=== PATIENT | male | born 1945 | race Caucasian/White ===

== ENCOUNTER → 2017-10-20 | Outpatient (CLI) | payer MEDICARE ==
[~2017-10-20] MED LIST: ACET500; ALBU2.5V5 INH; ALLO100; AMIT50; Amitriptyline100 MG PO; BUPR150ER; BUPR150ER PO; BUSP15; BUSP15 PO; CARI350; CEPACOL SORE T1 EACH MM; CHOL10002 PO; CLON.2 PO; CLOT10 SS; CODBUTASA; CYAN500 PO; DOC250 PO; ESZO3 PO; FENTANYL1 EAC1 TOP; FEXO180; GAVILAX17 GM PO; HYDMOR4; HYDMOR4 PO; K-Dur20 MEQ PO; LOSA50 PO; MIRT15ST PO; MONT10T PO; NAPR500; NAPR500 PO; Omeprazole20 M1 PO; POTA20PAC; SOMA350 MG PO; SPIR25 PO; TAMS.4ER; TEMA30; TOPI100; TOPI25 PO; TRIHYD253A; VANCOMYCIN1.5 GM/252 IV; VERA240ER; Verapamil ER200 MG PO
== END ==
LOC: LAB 15:51 → LAB SHORT 15:51
DX: N39.0 Urinary tract infection, site not specified (principal)
CPT/HCPCS: 87077; 87086; 87186

== ENCOUNTER 2018-02-03 20:50 | Inpatient (IN) | payer MEDICARE ==
[~2018-02-03] VITALS: Ht 188 cm; Wt 104.9 kg
[~2018-02-03 20:50] MED LIST changes: -ACET500; -ALBU2.5V5 INH; -Amitriptyline100 MG PO; -BUPR150ER PO; -BUSP15 PO; -CEPACOL SORE T1 EACH MM; -CLON.2 PO; -CLOT10 SS; -CYAN500 PO; -DOC250 PO; -ESZO3 PO; -FENTANYL1 EAC1 TOP; -GAVILAX17 GM PO; -K-Dur20 MEQ PO; -LOSA50 PO; -MIRT15ST PO; -MONT10T PO; -NAPR500 PO; -Omeprazole20 M1 PO; -SOMA350 MG PO; -SPIR25 PO; -TOPI25 PO; -VANCOMYCIN1.5 GM/252 IV; -Verapamil ER200 MG PO
[2018-02-03] MEDS ORDERED: Amitriptyline100 MG PO (21:07)
[2018-02-03] MEDS ORDERED: ACET500 (21:07)
[2018-02-03] MEDS ORDERED: CLON.2 PO (21:08)
[2018-02-03] MEDS ORDERED: BUSP15 PO (21:08)
[2018-02-03 21:12] LABS: BASOPHILS ABSOLUTE AUTO 0.01 K/mm3 (0.00-0.23); BASOPHILS PERCENT AUTO 0 % (0-2); Hematocrit 38.8 % (37.0-53.0); Hemoglobin 13.3 g/dL (13.5-17.5); LYMPHOCYTES ABSOLUTE AUTO 0.65 K/mm3 (0.84-5.20); LYMPHOCYTES PERCENT AUTO 7 % (21-46); MONOCYTES ABSOLUTE AUTO 0.83 K/mm3 (0.16-1.47); MONOCYTES PERCENT AUTO 10 % (4-13); Mean Corpuscular HGB 31.2 pg (26.0-34.0); Mean Corpuscular HGB Conc 34.3 g/dL (31.5-36.5); Mean Corpuscular Volume 91 fL (80-100); Mean Platelet Volume 9.5 fL (9.1-12.4); Platelet Count 182 K/mm3 (150-400); RDW Coefficient Variation 12.4 % (11.7-14.2); RDW Standard Deviation 41.1 fL (35.1-46.3); Red Blood Cell Count 4.26 M/mm3 (4.30-5.90); White Blood Cell Count 8.75 K/mm3 (4.00-11.30)
[2018-02-03 21:13] LABS: EOSINOPHILS PERCENT AUTO 0 % (0-6); IMMATURE GRAN ABSOLUTE AUTO 0.02 K/mm3 (0.00-0.10); IMMATURE GRAN PERCENT AUTO 0 % (0-1); NEUTROPHILS ABSOLUTE AUTO 7.24 K/mm3 (1.96-9.15); NEUTROPHILS PERCENT AUTO 83 % (41-73)
[2018-02-03 21:25] LABS: Albumin, Blood 3.5 g/dL (3.4-5.0); Bilirubin, Total 0.9 mg/dL (0.1-1.0); Bun/Creatinine Ratio 12.5 (12.0-20.0); Calcium, Blood 8.9 mg/dL (8.5-10.1); Creatinine, Blood 1.44 mg/dL (0.60-1.20); Globulin, Blood 3.5 g/dL (2.2-4.0); Potassium, Blood 3.9 mmol/L (3.5-5.5)
[2018-02-03] MEDS ORDERED: DOC250 PO (21:27)
[2018-02-03] MEDS ORDERED: HYDMOR4 PO (21:28)
[2018-02-03] MEDS ORDERED: K-Dur20 MEQ PO (21:29)
[2018-02-04] MEDS ORDERED: LOSA50 PO (00:25)
[2018-02-04] MEDS ORDERED: ESZO3 PO (00:25)
[2018-02-04] MEDS ORDERED: NAPR500 PO (00:26)
[2018-02-04] MEDS ORDERED: MONT10T PO (00:26)
[2018-02-04] MEDS ORDERED: Omeprazole20 M1 PO (00:27)
[2018-02-04] MEDS ORDERED: SOMA350 MG PO (00:29)
[2018-02-04] MEDS ORDERED: SPIR25 PO (00:30)
[2018-02-04] MEDS ORDERED: TOPI25 PO (00:32)
[2018-02-04] MEDS ORDERED: Verapamil ER200 MG PO (00:33)
[2018-02-04] MEDS ORDERED: CYAN500 PO (00:34)
[2018-02-04] MEDS ORDERED: CHOL10002 PO (00:35)
[2018-02-04] MEDS ORDERED: BUPR150ER PO (00:37)
[2018-02-04 03:45] LABS: Bun/Creatinine Ratio 15.7 (12.0-20.0); Calcium, Blood 8.3 mg/dL (8.5-10.1); Creatinine, Blood 1.4 mg/dL (0.60-1.20); Potassium, Blood 4.1 mmol/L (3.5-5.5)
[2018-02-05 05:45] LABS: Hematocrit 32.5 % (37.0-53.0); Hemoglobin 10.7 g/dL (13.5-17.5); Mean Corpuscular HGB 30.7 pg (26.0-34.0); Mean Corpuscular HGB Conc 32.9 g/dL (31.5-36.5); Mean Corpuscular Volume 93 fL (80-100); Mean Platelet Volume 9.9 fL (9.1-12.4); Platelet Count 142 K/mm3 (150-400); RDW Coefficient Variation 12.9 % (11.7-14.2); RDW Standard Deviation 44.5 fL (35.1-46.3); Red Blood Cell Count 3.49 M/mm3 (4.30-5.90); White Blood Cell Count 11.19 K/mm3 (4.00-11.30)
[2018-02-05 06:07] LABS: Alanine Aminotransfer (ALT/SGP 14 U/L (12-78); Albumin, Blood 2.5 g/dL (3.4-5.0); Albumin/Globulin Ratio 0.7 (0.8-1.8); Alk Phos 42 U/L (50-136); Anion Gap 8 mmol/L (6-16); Aspartate Aminotrans (AST/SGOT 10 U/L (12-37); Bilirubin, Total 0.6 mg/dL (0.1-1.0); Blood Urea Nitrogen 23 mg/dL (8-24); Bun/Creatinine Ratio 18.4 (12.0-20.0); CO2, Blood 22 mmol/L (21-32); Calcium, Blood 8.4 mg/dL (8.5-10.1); Chloride, Blood 109 mmol/L (98-108); Creatinine, Blood 1.25 mg/dL (0.60-1.20); Globulin, Blood 3.4 g/dL (2.2-4.0); Glomerular Filtration Rate >60 (60-); Glucose, Blood 102 mg/dL (70-99); Magnesium, Blood 1.6 mg/dL (1.6-2.4); Potassium, Blood 3.6 mmol/L (3.5-5.5); Sodium, Blood 139 mmol/L (136-145); Total Protein, Blood 5.9 g/dL (6.4-8.2)
[2018-02-05 06:09] LABS: BAND PERCENT MAN 32 % (0-8); BASOPHILS PERCENT MAN 0 % (0-2); EOSINOPHILS PERCENT MAN 0 % (0-6); LYMPHOCYTES ABSOLUTE MAN 0.44 K/mm3 (0.84-5.20); LYMPHOCYTES PERCENT MAN 4 % (21-46); MONOCYTES ABSOLUTE MAN 0.44 K/mm3 (0.16-1.47); MONOCYTES PERCENT MAN 4 % (4-13); NEUTROPHILS ABSOLUTE MAN 10.29 K/mm3 (1.96-9.15); SEG NEUTROPHILS PERCENT MAN 60 % (41-73); TOTAL CELLS COUNTED 100
[2018-02-06 04:04] LABS: Hematocrit 32.3 % (37.0-53.0); Hemoglobin 10.6 g/dL (13.5-17.5); Mean Corpuscular HGB 30.9 pg (26.0-34.0); Mean Corpuscular HGB Conc 32.8 g/dL (31.5-36.5); Mean Corpuscular Volume 94 fL (80-100); Mean Platelet Volume 9.6 fL (9.1-12.4); Platelet Count 154 K/mm3 (150-400); RDW Coefficient Variation 12.8 % (11.7-14.2); RDW Standard Deviation 44.3 fL (35.1-46.3); Red Blood Cell Count 3.43 M/mm3 (4.30-5.90); White Blood Cell Count 14.04 K/mm3 (4.00-11.30)
[2018-02-06 04:23] LABS: BAND PERCENT MAN 6 % (0-8); BASOPHILS PERCENT MAN 0 % (0-2); EOSINOPHILS PERCENT MAN 0 % (0-6); LYMPHOCYTES ABSOLUTE MAN 0.28 K/mm3 (0.84-5.20); LYMPHOCYTES PERCENT MAN 2 % (21-46); MONOCYTES ABSOLUTE MAN 0.14 K/mm3 (0.16-1.47); MONOCYTES PERCENT MAN 1 % (4-13); NEUTROPHILS ABSOLUTE MAN 13.61 K/mm3 (1.96-9.15); SEG NEUTROPHILS PERCENT MAN 91 % (41-73); TOTAL CELLS COUNTED 100
[2018-02-06 04:27] LABS: Alanine Aminotransfer (ALT/SGP 18 U/L (12-78); Albumin, Blood 2.4 g/dL (3.4-5.0); Albumin/Globulin Ratio 0.6 (0.8-1.8); Alk Phos 51 U/L (50-136); Anion Gap 8 mmol/L (6-16); Aspartate Aminotrans (AST/SGOT 17 U/L (12-37); Bilirubin, Total 0.9 mg/dL (0.1-1.0); Blood Urea Nitrogen 20 mg/dL (8-24); Bun/Creatinine Ratio 17.2 (12.0-20.0); CO2, Blood 23 mmol/L (21-32); Calcium, Blood 8.5 mg/dL (8.5-10.1); Chloride, Blood 109 mmol/L (98-108); Creatinine, Blood 1.16 mg/dL (0.60-1.20); Globulin, Blood 3.9 g/dL (2.2-4.0); Glomerular Filtration Rate >60 (60-); Glucose, Blood 101 mg/dL (70-99); Potassium, Blood 3.2 mmol/L (3.5-5.5); Sodium, Blood 140 mmol/L (136-145); Total Protein, Blood 6.3 g/dL (6.4-8.2)
[2018-02-06 04:32] LABS: Vancomycin, Trough 12.9 ug/mL (5.0-10.0)
[2018-02-07 06:05] LABS: BASOPHILS ABSOLUTE AUTO 0.02 K/mm3 (0.00-0.23); BASOPHILS PERCENT AUTO 0 % (0-2); EOSINOPHILS ABSOLUTE AUTO 0.02 K/mm3 (0.00-0.68); EOSINOPHILS PERCENT AUTO 0 % (0-6); Hematocrit 30.8 % (37.0-53.0); Hemoglobin 10.3 g/dL (13.5-17.5); IMMATURE GRAN ABSOLUTE AUTO 0.64 K/mm3 (0.00-0.10); IMMATURE GRAN PERCENT AUTO 4 % (0-1); LYMPHOCYTES ABSOLUTE AUTO 0.43 K/mm3 (0.84-5.20); LYMPHOCYTES PERCENT AUTO 3 % (21-46); MONOCYTES ABSOLUTE AUTO 1.05 K/mm3 (0.16-1.47); MONOCYTES PERCENT AUTO 7 % (4-13); Mean Corpuscular HGB 31.5 pg (26.0-34.0); Mean Corpuscular HGB Conc 33.4 g/dL (31.5-36.5); Mean Corpuscular Volume 94 fL (80-100); Mean Platelet Volume 9.9 fL (9.1-12.4); NEUTROPHILS ABSOLUTE AUTO 13.72 K/mm3 (1.96-9.15); NEUTROPHILS PERCENT AUTO 87 % (41-73); Platelet Count 177 K/mm3 (150-400); RDW Coefficient Variation 12.9 % (11.7-14.2); RDW Standard Deviation 45.1 fL (35.1-46.3); Red Blood Cell Count 3.27 M/mm3 (4.30-5.90); White Blood Cell Count 15.88 K/mm3 (4.00-11.30)
[2018-02-07 06:33] LABS: Albumin, Blood 2.2 g/dL (3.4-5.0); Albumin/Globulin Ratio 0.5 (0.8-1.8); Bilirubin, Total 0.6 mg/dL (0.1-1.0); Bun/Creatinine Ratio 16.3 (12.0-20.0); Calcium, Blood 8.8 mg/dL (8.5-10.1); Creatinine, Blood 1.41 mg/dL (0.60-1.20); Globulin, Blood 4.2 g/dL (2.2-4.0); Total Protein, Blood 6.4 g/dL (6.4-8.2)
[2018-02-08 05:10] LABS: BASOPHILS ABSOLUTE AUTO 0.02 K/mm3 (0.00-0.23); BASOPHILS PERCENT AUTO 0 % (0-2); EOSINOPHILS ABSOLUTE AUTO 0.08 K/mm3 (0.00-0.68); EOSINOPHILS PERCENT AUTO 1 % (0-6); Hematocrit 30.6 % (37.0-53.0); IMMATURE GRAN ABSOLUTE AUTO 0.21 K/mm3 (0.00-0.10); IMMATURE GRAN PERCENT AUTO 2 % (0-1); LYMPHOCYTES ABSOLUTE AUTO 0.58 K/mm3 (0.84-5.20); LYMPHOCYTES PERCENT AUTO 4 % (21-46); MONOCYTES ABSOLUTE AUTO 1.09 K/mm3 (0.16-1.47); MONOCYTES PERCENT AUTO 8 % (4-13); Mean Corpuscular HGB 30.2 pg (26.0-34.0); Mean Corpuscular HGB Conc 32.7 g/dL (31.5-36.5); Mean Corpuscular Volume 92 fL (80-100); Mean Platelet Volume 10.2 fL (9.1-12.4); NEUTROPHILS ABSOLUTE AUTO 11.11 K/mm3 (1.96-9.15); NEUTROPHILS PERCENT AUTO 85 % (41-73); Platelet Count 228 K/mm3 (150-400); RDW Coefficient Variation 13.1 % (11.7-14.2); RDW Standard Deviation 44.3 fL (35.1-46.3); Red Blood Cell Count 3.31 M/mm3 (4.30-5.90); White Blood Cell Count 13.09 K/mm3 (4.00-11.30)
[2018-02-08 05:38] LABS: Alanine Aminotransfer (ALT/SGP 72 U/L (12-78); Albumin, Blood 2.1 g/dL (3.4-5.0); Albumin/Globulin Ratio 0.5 (0.8-1.8); Alk Phos 87 U/L (50-136); Anion Gap 11 mmol/L (6-16); Aspartate Aminotrans (AST/SGOT 127 U/L (12-37); Bilirubin, Total 0.6 mg/dL (0.1-1.0); Blood Urea Nitrogen 28 mg/dL (8-24); Bun/Creatinine Ratio 17.8 (12.0-20.0); CO2, Blood 21 mmol/L (21-32); Calcium, Blood 8.9 mg/dL (8.5-10.1); Chloride, Blood 109 mmol/L (98-108); Creatinine, Blood 1.57 mg/dL (0.60-1.20); Globulin, Blood 4.3 g/dL (2.2-4.0); Glomerular Filtration Rate 47 (60-); Glucose, Blood 99 mg/dL (70-99); Potassium, Blood 3.1 mmol/L (3.5-5.5); Sodium, Blood 141 mmol/L (136-145); Total Protein, Blood 6.4 g/dL (6.4-8.2)
[2018-02-08 05:44] LABS: Vancomycin, Trough 28.5 ug/mL (5.0-10.0)
[2018-02-09 05:11] LABS: BASOPHILS ABSOLUTE AUTO 0.02 K/mm3 (0.00-0.23); BASOPHILS PERCENT AUTO 0 % (0-2); EOSINOPHILS ABSOLUTE AUTO 0.05 K/mm3 (0.00-0.68); EOSINOPHILS PERCENT AUTO 0 % (0-6); Hematocrit 29.6 % (37.0-53.0); Hemoglobin 9.9 g/dL (13.5-17.5); IMMATURE GRAN ABSOLUTE AUTO 0.33 K/mm3 (0.00-0.10); IMMATURE GRAN PERCENT AUTO 2 % (0-1); LYMPHOCYTES ABSOLUTE AUTO 0.37 K/mm3 (0.84-5.20); LYMPHOCYTES PERCENT AUTO 3 % (21-46); MONOCYTES ABSOLUTE AUTO 0.88 K/mm3 (0.16-1.47); MONOCYTES PERCENT AUTO 6 % (4-13); Mean Corpuscular HGB 31.1 pg (26.0-34.0); Mean Corpuscular HGB Conc 33.4 g/dL (31.5-36.5); Mean Corpuscular Volume 93 fL (80-100); Mean Platelet Volume 9.8 fL (9.1-12.4); NEUTROPHILS ABSOLUTE AUTO 12.37 K/mm3 (1.96-9.15); NEUTROPHILS PERCENT AUTO 88 % (41-73); Platelet Count 257 K/mm3 (150-400); RDW Coefficient Variation 13.2 % (11.7-14.2); RDW Standard Deviation 45.3 fL (35.1-46.3); Red Blood Cell Count 3.18 M/mm3 (4.30-5.90); White Blood Cell Count 14.02 K/mm3 (4.00-11.30)
[2018-02-09 05:51] LABS: Alanine Aminotransfer (ALT/SGP 99 U/L (12-78); Albumin, Blood 1.8 g/dL (3.4-5.0); Albumin/Globulin Ratio 0.4 (0.8-1.8); Alk Phos 103 U/L (50-136); Anion Gap 9 mmol/L (6-16); Aspartate Aminotrans (AST/SGOT 167 U/L (12-37); Bilirubin, Total 0.6 mg/dL (0.1-1.0); Blood Urea Nitrogen 30 mg/dL (8-24); Bun/Creatinine Ratio 19.2 (12.0-20.0); CO2, Blood 20 mmol/L (21-32); Calcium, Blood 8.6 mg/dL (8.5-10.1); Chloride, Blood 112 mmol/L (98-108); Creatinine, Blood 1.56 mg/dL (0.60-1.20); Globulin, Blood 4.3 g/dL (2.2-4.0); Glomerular Filtration Rate 47 (60-); Glucose, Blood 93 mg/dL (70-99); Potassium, Blood 3.7 mmol/L (3.5-5.5); Sodium, Blood 141 mmol/L (136-145); Total Protein, Blood 6.1 g/dL (6.4-8.2); Vancomycin, Trough 17.1 ug/mL (5.0-10.0)
[2018-02-10 06:11] LABS: BASOPHILS ABSOLUTE AUTO 0.02 K/mm3 (0.00-0.23); BASOPHILS PERCENT AUTO 0 % (0-2); EOSINOPHILS ABSOLUTE AUTO 0.09 K/mm3 (0.00-0.68); EOSINOPHILS PERCENT AUTO 1 % (0-6); Hematocrit 28.4 % (37.0-53.0); Hemoglobin 9.5 g/dL (13.5-17.5); IMMATURE GRAN ABSOLUTE AUTO 0.33 K/mm3 (0.00-0.10); IMMATURE GRAN PERCENT AUTO 2 % (0-1); LYMPHOCYTES ABSOLUTE AUTO 0.57 K/mm3 (0.84-5.20); LYMPHOCYTES PERCENT AUTO 4 % (21-46); MONOCYTES ABSOLUTE AUTO 0.76 K/mm3 (0.16-1.47); MONOCYTES PERCENT AUTO 5 % (4-13); Mean Corpuscular HGB 30.9 pg (26.0-34.0); Mean Corpuscular HGB Conc 33.5 g/dL (31.5-36.5); Mean Corpuscular Volume 93 fL (80-100); Mean Platelet Volume 9.7 fL (9.1-12.4); NEUTROPHILS PERCENT AUTO 89 % (41-73); Platelet Count 329 K/mm3 (150-400); RDW Coefficient Variation 13.2 % (11.7-14.2); Red Blood Cell Count 3.07 M/mm3 (4.30-5.90); White Blood Cell Count 16.37 K/mm3 (4.00-11.30)
[2018-02-10 06:45] LABS: Magnesium, Blood 2.3 mg/dL (1.6-2.4)
[2018-02-10 06:46] LABS: Albumin, Blood 2.4 g/dL (3.4-5.0); Albumin/Globulin Ratio 0.6 (0.8-1.8); Bilirubin, Total 0.6 mg/dL (0.1-1.0); Bun/Creatinine Ratio 26.1 (12.0-20.0); Calcium, Blood 8.8 mg/dL (8.5-10.1); Creatinine, Blood 1.57 mg/dL (0.60-1.20); Globulin, Blood 3.9 g/dL (2.2-4.0); Phosphorus, Blood 2.7 mg/dL (2.5-4.9); Potassium, Blood 3.8 mmol/L (3.5-5.5); Total Protein, Blood 6.3 g/dL (6.4-8.2)
[2018-02-11 05:43] LABS: Anion Gap 10 mmol/L (6-16); Blood Urea Nitrogen 40 mg/dL (8-24); Bun/Creatinine Ratio 29.4 (12.0-20.0); CO2, Blood 20 mmol/L (21-32); Chloride, Blood 110 mmol/L (98-108); Creatinine, Blood 1.36 mg/dL (0.60-1.20); Glomerular Filtration Rate 55 (60-); Glucose, Blood 112 mg/dL (70-99); Potassium, Blood 3.9 mmol/L (3.5-5.5); Sodium, Blood 140 mmol/L (136-145)
[2018-02-11 05:44] LABS: Alanine Aminotransfer (ALT/SGP 120 U/L (12-78); Albumin/Globulin Ratio 0.5 (0.8-1.8); Alk Phos 103 U/L (50-136); Aspartate Aminotrans (AST/SGOT 195 U/L (12-37); Bilirubin, Total 0.7 mg/dL (0.1-1.0); Calcium, Blood 8.4 mg/dL (8.5-10.1); Globulin, Blood 3.9 g/dL (2.2-4.0); Total Protein, Blood 5.9 g/dL (6.4-8.2); Vancomycin, Trough 14.1 ug/mL (5.0-10.0)
[2018-02-11 06:26] LABS: BASOPHILS ABSOLUTE AUTO 0.03 K/mm3 (0.00-0.23); BASOPHILS PERCENT AUTO 0 % (0-2); EOSINOPHILS ABSOLUTE AUTO 0.07 K/mm3 (0.00-0.68); EOSINOPHILS PERCENT AUTO 0 % (0-6); Hematocrit 29.5 % (37.0-53.0); Hemoglobin 9.8 g/dL (13.5-17.5); IMMATURE GRAN ABSOLUTE AUTO 0.19 K/mm3 (0.00-0.10); IMMATURE GRAN PERCENT AUTO 1 % (0-1); LYMPHOCYTES PERCENT AUTO 4 % (21-46); MONOCYTES ABSOLUTE AUTO 0.58 K/mm3 (0.16-1.47); MONOCYTES PERCENT AUTO 4 % (4-13); Mean Corpuscular HGB 30.8 pg (26.0-34.0); Mean Corpuscular HGB Conc 33.2 g/dL (31.5-36.5); Mean Corpuscular Volume 93 fL (80-100); Mean Platelet Volume 9.7 fL (9.1-12.4); NEUTROPHILS ABSOLUTE AUTO 14.25 K/mm3 (1.96-9.15); NEUTROPHILS PERCENT AUTO 91 % (41-73); Platelet Count 365 K/mm3 (150-400); RDW Coefficient Variation 13.1 % (11.7-14.2); RDW Standard Deviation 44.3 fL (35.1-46.3); Red Blood Cell Count 3.18 M/mm3 (4.30-5.90); White Blood Cell Count 15.72 K/mm3 (4.00-11.30)
[2018-02-11 13:10] LABS: % CD 4 POS. LYMPH. 51.7 % (30.8-58.5); ABSOLUTE CD 4 HELPER 259 /uL (359-1519); BASOS 0 % (Not Estab.); EOS 1 % (Not Estab.); EOS (ABSOLUTE) 0.1 x10E3/uL (0.0-0.4); HEMATOCRIT 29.8 % (37.5-51.0); HEMOGLOBIN 9.6 g/dL (13.0-17.7); IMMATURE GRANS (ABS) 0.1 x10E3/uL (0.0-0.1); IMMATURE GRANULOCYTES 1 % (Not Estab.); LYMPHS 3 % (Not Estab.); LYMPHS (ABSOLUTE) 0.5 x10E3/uL (0.7-3.1); MCH 30.3 pg (26.6-33.0); MCHC 32.2 g/dL (31.5-35.7); MCV 94 fL (79-97); MONOCYTES 6 % (Not Estab.); MONOCYTES(ABSOLUTE) 0.9 x10E3/uL (0.1-0.9); NEUTROPHILS 89 % (Not Estab.); NEUTROPHILS (ABSOLUTE) 14.1 x10E3/uL (1.4-7.0); PLATELETS 362 x10E3/uL (150-379); RBC 3.17 x10E6/uL (4.14-5.80); RDW 14.3 % (12.3-15.4); WBC 15.8 x10E3/uL (3.4-10.8)
[2018-02-11 15:07] LABS: HBSAG SCREEN Negative (Negative); HEP B CORE AB, TOT Negative (Negative); HEP C VIRUS AB <0.1 (0.0-0.9)
[2018-02-12 05:45] LABS: BASOPHILS ABSOLUTE AUTO 0.03 K/mm3 (0.00-0.23); BASOPHILS PERCENT AUTO 0 % (0-2); EOSINOPHILS ABSOLUTE AUTO 0.17 K/mm3 (0.00-0.68); EOSINOPHILS PERCENT AUTO 1 % (0-6); Hemoglobin 9.5 g/dL (13.5-17.5); IMMATURE GRAN ABSOLUTE AUTO 0.22 K/mm3 (0.00-0.10); IMMATURE GRAN PERCENT AUTO 1 % (0-1); LYMPHOCYTES ABSOLUTE AUTO 0.45 K/mm3 (0.84-5.20); LYMPHOCYTES PERCENT AUTO 3 % (21-46); MONOCYTES ABSOLUTE AUTO 0.52 K/mm3 (0.16-1.47); MONOCYTES PERCENT AUTO 3 % (4-13); Mean Corpuscular HGB 30.5 pg (26.0-34.0); Mean Corpuscular HGB Conc 32.8 g/dL (31.5-36.5); Mean Corpuscular Volume 93 fL (80-100); NEUTROPHILS ABSOLUTE AUTO 14.46 K/mm3 (1.96-9.15); NEUTROPHILS PERCENT AUTO 91 % (41-73); Platelet Count 419 K/mm3 (150-400); RDW Coefficient Variation 13.2 % (11.7-14.2); RDW Standard Deviation 45.1 fL (35.1-46.3); Red Blood Cell Count 3.11 M/mm3 (4.30-5.90); White Blood Cell Count 15.85 K/mm3 (4.00-11.30)
[2018-02-12 06:02] LABS: Albumin/Globulin Ratio 0.5 (0.8-1.8); Bilirubin, Total 0.5 mg/dL (0.1-1.0); Bun/Creatinine Ratio 34.1 (12.0-20.0); Calcium, Blood 8.5 mg/dL (8.5-10.1); Creatinine, Blood 1.38 mg/dL (0.60-1.20); Potassium, Blood 3.8 mmol/L (3.5-5.5)
[2018-02-12 12:10] LABS: Antinuclear Antibody Screen Negative (Negative)
[2018-02-12 14:51] LABS: Rheumatoid Factor, Serum Negative (Negative)
[2018-02-13 05:29] LABS: BASOPHILS ABSOLUTE AUTO 0.04 K/mm3 (0.00-0.23); BASOPHILS PERCENT AUTO 0 % (0-2); EOSINOPHILS ABSOLUTE AUTO 0.21 K/mm3 (0.00-0.68); EOSINOPHILS PERCENT AUTO 1 % (0-6); Hematocrit 30.2 % (37.0-53.0); IMMATURE GRAN ABSOLUTE AUTO 0.22 K/mm3 (0.00-0.10); IMMATURE GRAN PERCENT AUTO 1 % (0-1); LYMPHOCYTES ABSOLUTE AUTO 0.49 K/mm3 (0.84-5.20); LYMPHOCYTES PERCENT AUTO 3 % (21-46); MONOCYTES ABSOLUTE AUTO 0.61 K/mm3 (0.16-1.47); MONOCYTES PERCENT AUTO 4 % (4-13); Mean Corpuscular HGB 30.8 pg (26.0-34.0); Mean Corpuscular HGB Conc 33.1 g/dL (31.5-36.5); Mean Corpuscular Volume 93 fL (80-100); Mean Platelet Volume 9.8 fL (9.1-12.4); NEUTROPHILS ABSOLUTE AUTO 13.74 K/mm3 (1.96-9.15); NEUTROPHILS PERCENT AUTO 90 % (41-73); Platelet Count 510 K/mm3 (150-400); RDW Coefficient Variation 13.2 % (11.7-14.2); RDW Standard Deviation 44.9 fL (35.1-46.3); Red Blood Cell Count 3.25 M/mm3 (4.30-5.90); White Blood Cell Count 15.31 K/mm3 (4.00-11.30)
[2018-02-13 06:04] LABS: Alanine Aminotransfer (ALT/SGP 191 U/L (12-78); Albumin/Globulin Ratio 0.5 (0.8-1.8); Alk Phos 128 U/L (50-136); Anion Gap 10 mmol/L (6-16); Aspartate Aminotrans (AST/SGOT 238 U/L (12-37); Bilirubin, Total 0.5 mg/dL (0.1-1.0); Blood Urea Nitrogen 46 mg/dL (8-24); Bun/Creatinine Ratio 32.2 (12.0-20.0); CO2, Blood 22 mmol/L (21-32); Calcium, Blood 8.4 mg/dL (8.5-10.1); Chloride, Blood 107 mmol/L (98-108); Creatinine, Blood 1.43 mg/dL (0.60-1.20); Globulin, Blood 4.1 g/dL (2.2-4.0); Glomerular Filtration Rate 52 (60-); Glucose, Blood 104 mg/dL (70-99); Potassium, Blood 3.9 mmol/L (3.5-5.5); Sodium, Blood 139 mmol/L (136-145); Total Protein, Blood 6.1 g/dL (6.4-8.2)
[2018-02-13 16:09] LABS: QFT TB AG MINUS NIL VALUE 0.03 IU/mL (.); QUANTIFERON NIL VALUE 0.02 IU/mL (.); QUANTIFERON TB AG VALUE 0.05 IU/mL (.); QUANTIFERON TB GOLD Negative (Negative)
[2018-02-14 04:12] LABS: Hematocrit 28.1 % (37.0-53.0); Hemoglobin 9.2 g/dL (13.5-17.5); Mean Corpuscular HGB 30.3 pg (26.0-34.0); Mean Corpuscular HGB Conc 32.7 g/dL (31.5-36.5); Mean Corpuscular Volume 92 fL (80-100); Mean Platelet Volume 9.7 fL (9.1-12.4); Platelet Count 512 K/mm3 (150-400); RDW Coefficient Variation 13.1 % (11.7-14.2); RDW Standard Deviation 44.3 fL (35.1-46.3); Red Blood Cell Count 3.04 M/mm3 (4.30-5.90); White Blood Cell Count 13.84 K/mm3 (4.00-11.30)
[2018-02-14 04:31] LABS: Albumin, Blood 2.4 g/dL (3.4-5.0); Albumin/Globulin Ratio 0.6 (0.8-1.8); Bilirubin, Total 0.6 mg/dL (0.1-1.0); Bun/Creatinine Ratio 27.9 (12.0-20.0); Calcium, Blood 8.4 mg/dL (8.5-10.1); Creatinine, Blood 1.47 mg/dL (0.60-1.20); Potassium, Blood 4.1 mmol/L (3.5-5.5); Total Protein, Blood 6.4 g/dL (6.4-8.2)
[2018-02-14 04:32] LABS: BAND PERCENT MAN 1 % (0-8); BASOPHILS PERCENT MAN 0 % (0-2); EOSINOPHILS ABSOLUTE MAN 0.13 K/mm3 (0.00-0.68); EOSINOPHILS PERCENT MAN 1 % (0-6); LYMPHOCYTES ABSOLUTE MAN 0.41 K/mm3 (0.84-5.20); LYMPHOCYTES PERCENT MAN 3 % (21-46); METAMYELOCYTE ABSOLUTE MAN 0.13 K/mm3 (0.00-0.00); METAMYELOCYTE PERCENT MAN 1 % (0-0); MONOCYTES ABSOLUTE MAN 0.13 K/mm3 (0.16-1.47); MONOCYTES PERCENT MAN 1 % (4-13); SEG NEUTROPHILS PERCENT MAN 93 % (41-73); TOTAL CELLS COUNTED 100
[2018-02-15 05:17] LABS: BASOPHILS ABSOLUTE AUTO 0.07 K/mm3 (0.00-0.23); BASOPHILS PERCENT AUTO 1 % (0-2); EOSINOPHILS ABSOLUTE AUTO 0.17 K/mm3 (0.00-0.68); EOSINOPHILS PERCENT AUTO 1 % (0-6); Hematocrit 28.7 % (37.0-53.0); Hemoglobin 9.4 g/dL (13.5-17.5); IMMATURE GRAN ABSOLUTE AUTO 0.23 K/mm3 (0.00-0.10); IMMATURE GRAN PERCENT AUTO 2 % (0-1); LYMPHOCYTES ABSOLUTE AUTO 0.57 K/mm3 (0.84-5.20); LYMPHOCYTES PERCENT AUTO 4 % (21-46); MONOCYTES ABSOLUTE AUTO 0.93 K/mm3 (0.16-1.47); MONOCYTES PERCENT AUTO 7 % (4-13); Mean Corpuscular HGB 30.2 pg (26.0-34.0); Mean Corpuscular HGB Conc 32.8 g/dL (31.5-36.5); Mean Corpuscular Volume 92 fL (80-100); Mean Platelet Volume 9.8 fL (9.1-12.4); NEUTROPHILS ABSOLUTE AUTO 11.79 K/mm3 (1.96-9.15); NEUTROPHILS PERCENT AUTO 86 % (41-73); Platelet Count 573 K/mm3 (150-400); RDW Coefficient Variation 13.1 % (11.7-14.2); RDW Standard Deviation 44.2 fL (35.1-46.3); Red Blood Cell Count 3.11 M/mm3 (4.30-5.90); White Blood Cell Count 13.76 K/mm3 (4.00-11.30)
[2018-02-15 05:44] LABS: Albumin, Blood 2.3 g/dL (3.4-5.0); Albumin/Globulin Ratio 0.5 (0.8-1.8); Bilirubin, Total 0.7 mg/dL (0.1-1.0); Bun/Creatinine Ratio 25.5 (12.0-20.0); Calcium, Blood 8.4 mg/dL (8.5-10.1); Creatinine, Blood 1.49 mg/dL (0.60-1.20); Globulin, Blood 4.2 g/dL (2.2-4.0); Potassium, Blood 3.8 mmol/L (3.5-5.5); Total Protein, Blood 6.5 g/dL (6.4-8.2)
[2018-02-16 06:06] LABS: Anion Gap 10 mmol/L (6-16); Blood Urea Nitrogen 34 mg/dL (8-24); Bun/Creatinine Ratio 25.8 (12.0-20.0); CO2, Blood 22 mmol/L (21-32); Chloride, Blood 104 mmol/L (98-108); Creatinine, Blood 1.32 mg/dL (0.60-1.20); Glomerular Filtration Rate 57 (60-); Glucose, Blood 120 mg/dL (70-99); Potassium, Blood 3.5 mmol/L (3.5-5.5); Sodium, Blood 136 mmol/L (136-145); Vancomycin, Trough 14.1 ug/mL (5.0-10.0)
[2018-02-16 06:09] LABS: HIV SCREEN 4TH GENERATION WRFX Non Reactive (Non Reactive)
[2018-02-17 03:47] LABS: Hematocrit 24.6 % (37.0-53.0); Hemoglobin 8.1 g/dL (13.5-17.5); Mean Corpuscular HGB 30.7 pg (26.0-34.0); Mean Corpuscular HGB Conc 32.9 g/dL (31.5-36.5); Mean Corpuscular Volume 93 fL (80-100); Mean Platelet Volume 9.6 fL (9.1-12.4); Platelet Count 506 K/mm3 (150-400); RDW Coefficient Variation 12.9 % (11.7-14.2); RDW Standard Deviation 43.9 fL (35.1-46.3); Red Blood Cell Count 2.64 M/mm3 (4.30-5.90); White Blood Cell Count 10.47 K/mm3 (4.00-11.30)
[2018-02-17 04:11] LABS: Calcium, Blood 8.1 mg/dL (8.5-10.1); Creatinine, Blood 1.37 mg/dL (0.60-1.20); Potassium, Blood 3.5 mmol/L (3.5-5.5)
[2018-02-19 05:37] LABS: BASOPHILS ABSOLUTE AUTO 0.07 K/mm3 (0.00-0.23); BASOPHILS PERCENT AUTO 1 % (0-2); EOSINOPHILS ABSOLUTE AUTO 0.15 K/mm3 (0.00-0.68); EOSINOPHILS PERCENT AUTO 1 % (0-6); Hematocrit 25.9 % (37.0-53.0); Hemoglobin 8.5 g/dL (13.5-17.5); IMMATURE GRAN ABSOLUTE AUTO 0.11 K/mm3 (0.00-0.10); IMMATURE GRAN PERCENT AUTO 1 % (0-1); LYMPHOCYTES ABSOLUTE AUTO 0.57 K/mm3 (0.84-5.20); LYMPHOCYTES PERCENT AUTO 5 % (21-46); MONOCYTES ABSOLUTE AUTO 0.75 K/mm3 (0.16-1.47); MONOCYTES PERCENT AUTO 7 % (4-13); Mean Corpuscular HGB 30.6 pg (26.0-34.0); Mean Corpuscular HGB Conc 32.8 g/dL (31.5-36.5); Mean Corpuscular Volume 93 fL (80-100); Mean Platelet Volume 9.2 fL (9.1-12.4); NEUTROPHILS ABSOLUTE AUTO 9.14 K/mm3 (1.96-9.15); NEUTROPHILS PERCENT AUTO 85 % (41-73); Platelet Count 568 K/mm3 (150-400); RDW Standard Deviation 44.2 fL (35.1-46.3); Red Blood Cell Count 2.78 M/mm3 (4.30-5.90); White Blood Cell Count 10.79 K/mm3 (4.00-11.30)
[2018-02-19 05:53] LABS: Anion Gap 10 mmol/L (6-16); Blood Urea Nitrogen 34 mg/dL (8-24); Bun/Creatinine Ratio 25.8 (12.0-20.0); CO2, Blood 22 mmol/L (21-32); Calcium, Blood 8.1 mg/dL (8.5-10.1); Chloride, Blood 105 mmol/L (98-108); Creatinine, Blood 1.32 mg/dL (0.60-1.20); Glomerular Filtration Rate 57 (60-); Glucose, Blood 119 mg/dL (70-99); Potassium, Blood 3.9 mmol/L (3.5-5.5); Sodium, Blood 137 mmol/L (136-145); Vancomycin, Trough 14.9 ug/mL (5.0-10.0)
[2018-02-20 04:49] LABS: Bun/Creatinine Ratio 26.5 (12.0-20.0); Calcium, Blood 8.5 mg/dL (8.5-10.1); Creatinine, Blood 1.36 mg/dL (0.60-1.20); Potassium, Blood 4.1 mmol/L (3.5-5.5)
[2018-02-21 06:40] LABS: Bun/Creatinine Ratio 21.2 (12.0-20.0); Calcium, Blood 8.6 mg/dL (8.5-10.1); Creatinine, Blood 1.56 mg/dL (0.60-1.20); Potassium, Blood 4.1 mmol/L (3.5-5.5)
[2018-02-22 05:48] LABS: BASOPHILS ABSOLUTE AUTO 0.09 K/mm3 (0.00-0.23); BASOPHILS PERCENT AUTO 1 % (0-2); EOSINOPHILS ABSOLUTE AUTO 0.43 K/mm3 (0.00-0.68); EOSINOPHILS PERCENT AUTO 4 % (0-6); Hematocrit 27.7 % (37.0-53.0); Hemoglobin 8.8 g/dL (13.5-17.5); IMMATURE GRAN ABSOLUTE AUTO 0.13 K/mm3 (0.00-0.10); IMMATURE GRAN PERCENT AUTO 1 % (0-1); LYMPHOCYTES ABSOLUTE AUTO 0.77 K/mm3 (0.84-5.20); LYMPHOCYTES PERCENT AUTO 7 % (21-46); MONOCYTES ABSOLUTE AUTO 0.85 K/mm3 (0.16-1.47); MONOCYTES PERCENT AUTO 8 % (4-13); Mean Corpuscular HGB 29.8 pg (26.0-34.0); Mean Corpuscular HGB Conc 31.8 g/dL (31.5-36.5); Mean Corpuscular Volume 94 fL (80-100); Mean Platelet Volume 9.4 fL (9.1-12.4); NEUTROPHILS ABSOLUTE AUTO 8.07 K/mm3 (1.96-9.15); NEUTROPHILS PERCENT AUTO 78 % (41-73); Platelet Count 616 K/mm3 (150-400); RDW Standard Deviation 44.8 fL (35.1-46.3); Red Blood Cell Count 2.95 M/mm3 (4.30-5.90); White Blood Cell Count 10.34 K/mm3 (4.00-11.30)
[2018-02-22 06:12] LABS: Anion Gap 10 mmol/L (6-16); Blood Urea Nitrogen 36 mg/dL (8-24); Bun/Creatinine Ratio 19.9 (12.0-20.0); CO2, Blood 26 mmol/L (21-32); Calcium, Blood 8.5 mg/dL (8.5-10.1); Chloride, Blood 104 mmol/L (98-108); Creatinine, Blood 1.81 mg/dL (0.60-1.20); Glomerular Filtration Rate 40 (60-); Glucose, Blood 121 mg/dL (70-99); Potassium, Blood 4.1 mmol/L (3.5-5.5); Sodium, Blood 140 mmol/L (136-145)
[2018-02-22 06:18] LABS: Vancomycin, Trough 20.8 ug/mL (5.0-10.0)
[2018-02-22] MEDS ORDERED: CEPACOL SORE T1 EACH MM (11:31)
[2018-02-22] MEDS ORDERED: ALBU2.5V5 INH (11:32)
[2018-02-22] MEDS ORDERED: CLOT10 SS (11:32)
[2018-02-22] MEDS ORDERED: MIRT15ST PO (11:33)
[2018-02-22] MEDS ORDERED: GAVILAX17 GM PO (11:33)
[2018-02-22] MEDS ORDERED: FENTANYL1 EAC1 TOP (11:35)
[2018-02-22] MEDS ORDERED: VANCOMYCIN1.5 GM/252 IV (11:37)
== END 2018-02-22 12:05 | disposition home health service (06) | DRG 871 ==
LOC: ER 20:50 → MEDS 23:19 → PCU 23:19 → MEDS 23:58 → PCU 02-05 12:42 → MEDS 02-14 19:15 → PCU 02-15 19:40
PROVIDERS: Emergency Medicine; Hospitalist; Internal Medicine
PROC: 5A09357 Assistance with Respiratory Ventilation, Less than 24 Consecutive Hours, Continuous Positive Airway Pressure (ICD-10-PCS; 2018-02-06)
PROC: B246ZZ4 Ultrasonography of Right and Left Heart, Transesophageal (ICD-10-PCS; principal; 2018-02-13)
DX: A41.02 Sepsis due to Methicillin resistant Staphylococcus aureus (principal); I33.0 Acute and subacute infective endocarditis; G93.40 Encephalopathy, unspecified; J85.1 Abscess of lung with pneumonia; N17.9 Acute kidney failure, unspecified; E46 Unspecified protein-calorie malnutrition; G43.909 Migraine, unspecified, not intractable, without status migrainosus; G50.0 Trigeminal neuralgia; Z85.46 Personal history of malignant neoplasm of prostate; G89.29 Other chronic pain; G47.33 Obstructive sleep apnea (adult) (pediatric); Z92.3 Personal history of irradiation; R41.0 Disorientation, unspecified; M70.22 Olecranon bursitis, left elbow; M06.9 Rheumatoid arthritis, unspecified; D72.810 Lymphocytopenia; I80.8 Phlebitis and thrombophlebitis of other sites; I10 Essential (primary) hypertension; Z68.29 Body mass index [BMI] 29.0-29.9, adult
CPT/HCPCS: 36415; 70551; 71045; 71046; 71250; 72141; 80048; 80053; 80202; 83605; 83735; 84100; 85007; 85025; 85027; 85651; 86038; 86361; 86430; 86480; 86704; 86708; 86803; 87040; 87070; 87077; 87147; 87186; 87205; 87340; 87389; 93005; 93010; 93306; 93312; 93325; 93970; 93971; 94640; 94660; 94760; 94761; 94762; 96365; 96367; 96375; 96376; 97110; 97116; 97161; 97164; 97530; 99285; C1751; G8978; G8979; J0360; J0456; J0696; J0780; J1650; J1885; J1940; J1956; J2405; J2930; J3010; J3370; J3480; J7030; J7050; J7120; P9041

== ENCOUNTER 2018-02-24 11:50 | Emergency (ER) | payer MEDICARE ==
[~2018-02-24] VITALS: Ht 190.5 cm; Wt 104.3 kg
[~2018-02-24 11:50] MED LIST changes: +ACET500; +ALBU2.5V5 INH; +Amitriptyline100 MG PO; +BUPR150ER PO; +BUSP15 PO; +CEPACOL SORE T1 EACH MM; +CLON.2 PO; +CLOT10 SS; +CYAN500 PO; +DOC250 PO; +ESZO3 PO; +FENTANYL1 EAC1 TOP; +GAVILAX17 GM PO; +K-Dur20 MEQ PO; +LOSA50 PO; +MIRT15ST PO; +MONT10T PO; +NAPR500 PO; +Omeprazole20 M1 PO; +SOMA350 MG PO; +SPIR25 PO; +TOPI25 PO; +VANCOMYCIN1.5 GM/252 IV; +Verapamil ER200 MG PO
[2018-02-24 16:56] LABS: Vancomycin, Trough 17.9 ug/mL (5.0-10.0)
[2018-02-24 17:34] LABS: Anion Gap 11 mmol/L (6-16); Blood Urea Nitrogen 27 mg/dL (8-24); Bun/Creatinine Ratio 17.1 (12.0-20.0); CO2, Blood 23 mmol/L (21-32); Chloride, Blood 106 mmol/L (98-108); Creatinine, Blood 1.58 mg/dL (0.60-1.20); Glomerular Filtration Rate 46 (60-); Glucose, Blood 84 mg/dL (70-99); Potassium, Blood 4.5 mmol/L (3.5-5.5); Sodium, Blood 140 mmol/L (136-145)
== END 2018-02-24 17:27 | disposition home or self-care (01) ==
LOC: ER 11:50
PROVIDERS: Internal Medicine
DX: J18.9 Pneumonia, unspecified organism (principal); R78.81 Bacteremia; B95.62 Methicillin resistant Staphylococcus aureus infection as the cause of diseases classified elsewhere; Z88.6 Allergy status to analgesic agent; Z88.8 Allergy status to other drugs, medicaments and biological substances; Z88.1 Allergy status to other antibiotic agents; Z88.5 Allergy status to narcotic agent
CPT/HCPCS: 36415; 80048; 80202; 99283

== ENCOUNTER 2018-02-26 00:11 | Day surgery (SDC) | payer MEDICARE | END 2018-02-26 22:38 | disposition home or self-care (01) | LOC: ATC 00:11 | DX: J15.212 Pneumonia due to Methicillin resistant Staphylococcus aureus (principal); R78.81 Bacteremia ==

== ENCOUNTER 2018-02-26 16:18 | Emergency (ER) | payer MEDICARE ==
[~2018-02-26] VITALS: Ht 190.5 cm; Wt 104.3 kg
== END 2018-02-26 18:15 | disposition home or self-care (01) ==
LOC: ER 16:18
DX: J15.212 Pneumonia due to Methicillin resistant Staphylococcus aureus (principal); R78.81 Bacteremia
CPT/HCPCS: 36415; 99282

== ENCOUNTER → 2018-02-27 | Outpatient (CLI) | payer MEDICARE ==
[2018-02-27 16:44] LABS: Bilirubin, Urine Neg (Neg); Blood, Urine Neg (Neg); Glucose Qualitative, Urine Neg (Neg); Ketones, Urine Neg (Neg); Leukocyte Esterase, Urine Neg (Neg); Nitrite, Urine Neg (Neg); Protein, Urine Neg (Neg); Urobilinogen, Urine NORM (Normal)
[2018-02-27 16:52] LABS: Appearance, Urine Clear (Clear); Color, Urine Pale Yellow (P-Yellow)
== END | disposition home or self-care (01) ==
LOC: LAB 15:35 → LAB SHORT 15:35
PROVIDERS: Internal Medicine
DX: R31.0 Gross hematuria (principal)
CPT/HCPCS: 81003

== ENCOUNTER → 2018-02-28 | Outpatient (CLI) | payer MEDICARE ==
[2018-02-28 21:03] LABS: Vancomycin, Trough 20.9 ug/mL (5.0-10.0)
== END ==
LOC: LAB 17:30 → LAB SHORT 17:30
PROVIDERS: Internal Medicine
DX: J18.9 Pneumonia, unspecified organism (principal)
CPT/HCPCS: 80202

== ENCOUNTER → 2018-03-09 | Outpatient (CLI) | payer MEDICARE ==
[2018-03-09 15:55] LABS: BASOPHILS ABSOLUTE AUTO 0.04 K/mm3 (0.00-0.23); BASOPHILS PERCENT AUTO 1 % (0-2); EOSINOPHILS ABSOLUTE AUTO 0.48 K/mm3 (0.00-0.68); EOSINOPHILS PERCENT AUTO 8 % (0-6); Hematocrit 31.4 % (37.0-53.0); IMMATURE GRAN ABSOLUTE AUTO 0.03 K/mm3 (0.00-0.10); IMMATURE GRAN PERCENT AUTO 1 % (0-1); LYMPHOCYTES ABSOLUTE AUTO 1.02 K/mm3 (0.84-5.20); LYMPHOCYTES PERCENT AUTO 17 % (21-46); MONOCYTES ABSOLUTE AUTO 0.53 K/mm3 (0.16-1.47); MONOCYTES PERCENT AUTO 9 % (4-13); Mean Corpuscular HGB 29.4 pg (26.0-34.0); Mean Corpuscular HGB Conc 31.8 g/dL (31.5-36.5); Mean Corpuscular Volume 92 fL (80-100); Mean Platelet Volume 9.1 fL (9.1-12.4); NEUTROPHILS ABSOLUTE AUTO 4.01 K/mm3 (1.96-9.15); NEUTROPHILS PERCENT AUTO 66 % (41-73); Platelet Count 355 K/mm3 (150-400); RDW Coefficient Variation 13.2 % (11.7-14.2); RDW Standard Deviation 44.8 fL (35.1-46.3); White Blood Cell Count 6.11 K/mm3 (4.00-11.30)
[2018-03-09 16:13] LABS: Alanine Aminotransfer (ALT/SGP 47 U/L (12-78); Albumin, Blood 2.8 g/dL (3.4-5.0); Albumin/Globulin Ratio 0.6 (0.8-1.8); Alk Phos 100 U/L (50-136); Anion Gap 8 mmol/L (6-16); Aspartate Aminotrans (AST/SGOT 24 U/L (12-37); Bilirubin, Total 0.4 mg/dL (0.1-1.0); Blood Urea Nitrogen 25 mg/dL (8-24); Bun/Creatinine Ratio 15.5 (12.0-20.0); CO2, Blood 24 mmol/L (21-32); Chloride, Blood 108 mmol/L (98-108); Creatinine, Blood 1.61 mg/dL (0.60-1.20); Globulin, Blood 4.7 g/dL (2.2-4.0); Glomerular Filtration Rate 45 (60-); Glucose, Blood 87 mg/dL (70-99); Potassium, Blood 4.1 mmol/L (3.5-5.5); Sodium, Blood 140 mmol/L (136-145); Total Protein, Blood 7.5 g/dL (6.4-8.2); Vancomycin, Trough 8.5 ug/mL (5.0-10.0)
== END | disposition home or self-care (01) ==
LOC: LAB SHORT 15:46 → LAB 15:46
PROVIDERS: Internal Medicine Infectious Disease
DX: N17.9 Acute kidney failure, unspecified (principal); J18.9 Pneumonia, unspecified organism; E46 Unspecified protein-calorie malnutrition; D72.810 Lymphocytopenia
CPT/HCPCS: 80053; 80202; 85025

== ENCOUNTER 2019-05-26 00:10 | Day surgery (SDC) | payer MEDICARE, OTHER ==
[2019-05-26 11:00] LABS: Albumin, Blood 3.7 g/dL (3.4-5.0); Anion Gap 6 mmol/L (6-16); Blood Urea Nitrogen 16 mg/dL (8-24); CO2, Blood 27 mmol/L (21-32); Calcium, Blood 9.1 mg/dL (8.5-10.1); Chloride, Blood 110 mmol/L (98-108); Glomerular Filtration Rate 45 (60-); Glucose, Blood 84 mg/dL (70-99); Phosphorus, Blood 2.8 mg/dL (2.5-4.9); Potassium, Blood 3.6 mmol/L (3.5-5.5); Sodium, Blood 143 mmol/L (136-145)
== END 2019-05-26 10:45 | disposition home or self-care (01) ==
LOC: ATC 00:10
PROVIDERS: Internal Medicine
DX: I95.1 Orthostatic hypotension (principal); N18.3 Chronic kidney disease, stage 3 (moderate)
CPT/HCPCS: 36415; 80069; 80400; 82533; 83735; 96372; J0834

== ENCOUNTER 2019-09-17 12:03 | Day surgery (SDC) | payer MEDICARE, OTHER ==
[~2019-09-17] VITALS: Ht 188 cm; Wt 93.6 kg
[~2019-09-17 12:03] MED LIST changes: +ACET500 PO; +Buspirone HCl15 MG PO; +CALAN SR240 MG PO; +Catapres-Tts 21 EACH; +DOCU100 PO; +FENT50TP TOP; +LOSA25 PO; +OMEPRAZOLE20 MG PO; +POTCHL20ER PO; +TOPI100 PO; +VITAMIN B122500 MCG PO; +Vitamin D2000 UNIT PO
== END 2019-09-17 14:35 | disposition home or self-care (01) ==
LOC: ORSCSDS 12:03
DX: R13.10 Dysphagia, unspecified (principal); K22.2 Esophageal obstruction; K29.50 Unspecified chronic gastritis without bleeding; D12.2 Benign neoplasm of ascending colon; D12.3 Benign neoplasm of transverse colon; D12.4 Benign neoplasm of descending colon; K64.4 Residual hemorrhoidal skin tags; K64.8 Other hemorrhoids; K57.30 Diverticulosis of large intestine without perforation or abscess without bleeding; Z12.11 Encounter for screening for malignant neoplasm of colon; Z86.010 Personal history of colon polyps; I10 Essential (primary) hypertension; G47.33 Obstructive sleep apnea (adult) (pediatric); F41.8 Other specified anxiety disorders; J45.909 Unspecified asthma, uncomplicated; Z79.899 Other long term (current) drug therapy
CPT/HCPCS: 88305; 88342; J2704; J7120

== ENCOUNTER → 2019-11-11 | Outpatient (CLI) | payer MEDICARE, OTHER ==
[2019-11-11 14:47] LABS: Bilirubin, Urine Neg (Neg); Blood, Urine 2+ (Neg); Glucose Qualitative, Urine Neg (Neg); Ketones, Urine Neg (Neg); Leukocyte Esterase, Urine 3+ (Neg); Nitrite, Urine Neg (Neg); Protein, Urine 2+ (Neg); Urobilinogen, Urine NORM (Normal)
[2019-11-11 15:06] LABS: Appearance, Urine Cloudy (Clear); Color, Urine Yellow (P-Yellow)
[2019-11-11 15:07] LABS: Bacteria Many /hpf; Squamous Epithelial Cells Not Seen /hpf (Few); White Blood Cells, Urine TNTC /hpf (0-5)
== END | disposition home or self-care (01) ==
LOC: LAB SHORT 14:15 → LAB 14:15
PROVIDERS: Internal Medicine
DX: R30.0 Dysuria (principal)
CPT/HCPCS: 81001; 87086

== ENCOUNTER 2023-06-07 00:26 | Day surgery (SDC) | payer MEDICARE ==
[2023-06-07 13:30] VITALS: BP 151/88
[2023-06-07] MEDS ORDERED: RISPERIDONE2 M9 PO (14:31)
== END 2023-06-07 15:33 | disposition home or self-care (01) ==
LOC: ATC 00:26
DX: R32 Unspecified urinary incontinence (principal); E78.5 Hyperlipidemia, unspecified; N18.32 Chronic kidney disease, stage 3b; E55.9 Vitamin D deficiency, unspecified
CPT/HCPCS: 51798

== ENCOUNTER 2023-07-07 19:44 | Emergency (ER) | payer MEDICARE ==
[~2023-07-07] VITALS: Ht 188 cm; Wt 91.6 kg
[~2023-07-07 19:44] MED LIST changes: +RISPERIDONE2 M9 PO
[2023-07-07 19:52] VITALS: BP 177/11
== END 2023-07-07 23:35 | disposition home or self-care (01) ==
LOC: ER 19:44
DX: S01.81XA Laceration without foreign body of other part of head, initial encounter (principal); S02.2XXB Fracture of nasal bones, initial encounter for open fracture; I10 Essential (primary) hypertension; W01.0XXA Fall on same level from slipping, tripping and stumbling without subsequent striking against object, initial encounter; Z79.899 Other long term (current) drug therapy
CPT/HCPCS: 12013; 70450; 70486; 96374-59; 96375-59; 99284-25; A9270; J2270; J2405

== ENCOUNTER 2023-07-10 08:11 | Emergency (ER) | payer MEDICARE ==
[~2023-07-10] VITALS: Ht 188 cm; Wt 91.6 kg
[2023-07-10 10:53] VITALS: BP 126/74
== END 2023-07-10 10:50 | disposition home or self-care (01) ==
LOC: ER 08:11
DX: R07.81 Pleurodynia (principal); M25.551 Pain in right hip; I10 Essential (primary) hypertension; Z91.81 History of falling; Z79.899 Other long term (current) drug therapy
CPT/HCPCS: 71046; 73502; 93005; 93010; 99285-25

== ENCOUNTER 2023-09-07 15:51 | Inpatient (IN) | payer MEDICARE ==
[~2023-09-07] VITALS: Ht 188 cm; Wt 85.8 kg
[2023-09-07 16:33] LABS: BASOPHILS ABSOLUTE AUTO 0.04 K/mm3 (0.00-0.23); BASOPHILS PERCENT AUTO 1 % (0-2); EOSINOPHILS PERCENT AUTO 2 % (0-6); Hematocrit 33.3 % (37.0-53.0); Hemoglobin 10.6 g/dL (13.5-17.5); IMMATURE GRAN ABSOLUTE AUTO 0.02 K/mm3 (0.00-0.10); IMMATURE GRAN PERCENT AUTO 0 % (0-1); LYMPHOCYTES ABSOLUTE AUTO 1.54 K/mm3 (0.84-5.20); LYMPHOCYTES PERCENT AUTO 23 % (21-46); MONOCYTES ABSOLUTE AUTO 0.59 K/mm3 (0.16-1.47); MONOCYTES PERCENT AUTO 9 % (4-13); Mean Corpuscular HGB 28.2 pg (26.0-34.0); Mean Corpuscular HGB Conc 31.8 g/dL (31.5-36.5); Mean Corpuscular Volume 89 fL (80-100); Mean Platelet Volume 9.8 fL (9.1-12.4); NEUTROPHILS ABSOLUTE AUTO 4.34 K/mm3 (1.96-9.15); NEUTROPHILS PERCENT AUTO 66 % (41-73); Platelet Count 175 K/mm3 (150-400); RDW Coefficient Variation 13.5 % (11.7-14.2); RDW Standard Deviation 43.6 fL (35.1-46.3); Red Blood Cell Count 3.76 M/mm3 (4.30-5.90); White Blood Cell Count 6.63 K/mm3 (4.00-11.30)
[2023-09-07 16:44] LABS: Albumin, Blood 3.2 g/dL (3.4-5.0); Bilirubin, Total 0.3 mg/dL (0.1-1.0); Bun/Creatinine Ratio 12.6 (12.0-20.0); Calcium, Blood 8.9 mg/dL (8.5-10.1); Creatinine, Blood 1.27 mg/dL (0.60-1.20); Globulin, Blood 3.3 g/dL (2.2-4.0); Potassium, Blood 3.5 mmol/L (3.5-5.5); Total Protein, Blood 6.5 g/dL (6.4-8.2)
[2023-09-07 18:18] LABS: Influenza A, PCR NEGATIVE (NEGATIVE); Influenza B, PCR NEGATIVE (NEGATIVE); Resp Syncytial Virus, PCR NEGATIVE (NEGATIVE); SARS-Cov-2 (COVID-19) PCR, MMC NEGATIVE (NEGATIVE)
[2023-09-07 21:38] LABS: Anti-Xa UFH, PHA Monitoring <0.10 IU/mL; Prothrombin Time Results 11.5 Sec (9.7-11.5)
[2023-09-08] VITALS (16 sets, daily range): BP systolic 99–173; BP diastolic 64–115
[2023-09-08] MEDS ORDERED: MONT10T PO (00:14)
[2023-09-08] MEDS ORDERED: ALLEGRA ALLERG180 MG PO (00:18)
--- NOTE | 2023-09-08 04:23 | NUR ---
SHIFT SUMMARY PT IS ALERT AND ORIENTED X 4, COOPERATIVE WITH CARE AND ABLE TO MAKE NEEDS KNOWN. PERRLA. PT COMPLAINS OF CHRONIC HEAD PAIN FROM PAST HS OF SURGERY ON HIS TRIGEMINAL NERVE. HE ALSO COMPLAINS OF BACK PAIN FROM FALL THAT HE HAD AT HOME PRIOR TO BEING ADMITTED TO HOSPITAL. PT HAD SYNCOPAL EPISODE AT HOME AND IN ER, PT ON STRICT BED REST. PT ON 2L NC AND MAINTAINING 02 SATURATION ABOVE 92%, HE DENIES SOB. PT IS HYPERTENSIVE AND MD IS AWARE. PER MD, PT IS NOT TO HAVE BP MEDICATIONS FOR 12 HOURS. PT DENIES CHEST PAIN/PRESSURE. PER REPORT FROM ER NURSE, PT IS ABLE TO USE URINAL WHILE IN BED. PT HAS NOT NEEDED TO USE URINAL YET THIS SHIFT. PT HAS SKIN TEAR TO HIS L ARM THAT HE SAID HAPPENED AT HOME WHEN HE FELL, AREA IS BANDAGED. PT ON HEPARIN DRIP PER EMAR. NO SIGNS OR SYMPTOMS OF BLEEDING OBSERVED THIS SHIFT. IV TO L AC INFUSING PER EMAR. IV TO L WRIST IS PATENT/FLUSHED/SALINE LOCKED. PT'S IS AT BEDSIDE WITH HIM. HE IS CURRENTLY RESTING IN BED WITH CALL LIGHT WITHIN REACH.
[2023-09-08 05:39] LABS: BASOPHILS ABSOLUTE AUTO 0.06 K/mm3 (0.00-0.23); BASOPHILS PERCENT AUTO 1 % (0-2); EOSINOPHILS ABSOLUTE AUTO 0.04 K/mm3 (0.00-0.68); EOSINOPHILS PERCENT AUTO 1 % (0-6); Hematocrit 34.1 % (37.0-53.0); Hemoglobin 11.1 g/dL (13.5-17.5); IMMATURE GRAN ABSOLUTE AUTO 0.02 K/mm3 (0.00-0.10); IMMATURE GRAN PERCENT AUTO 0 % (0-1); LYMPHOCYTES ABSOLUTE AUTO 0.92 K/mm3 (0.84-5.20); LYMPHOCYTES PERCENT AUTO 13 % (21-46); MONOCYTES ABSOLUTE AUTO 0.76 K/mm3 (0.16-1.47); MONOCYTES PERCENT AUTO 11 % (4-13); Mean Corpuscular HGB Conc 32.6 g/dL (31.5-36.5); Mean Corpuscular Volume 89 fL (80-100); Mean Platelet Volume 10.2 fL (9.1-12.4); NEUTROPHILS ABSOLUTE AUTO 5.39 K/mm3 (1.96-9.15); NEUTROPHILS PERCENT AUTO 75 % (41-73); Platelet Count 176 K/mm3 (150-400); RDW Coefficient Variation 13.5 % (11.7-14.2); RDW Standard Deviation 43.8 fL (35.1-46.3); Red Blood Cell Count 3.83 M/mm3 (4.30-5.90); White Blood Cell Count 7.19 K/mm3 (4.00-11.30)
[2023-09-08 06:46] LABS: Albumin, Blood 3.1 g/dL (3.4-5.0); Anion Gap 6 mmol/L (6-16); Blood Urea Nitrogen 18 mg/dL (8-24); Bun/Creatinine Ratio 13.8 (12.0-20.0); CO2, Blood 22 mmol/L (21-32); Chloride, Blood 114 mmol/L (98-108); Glomerular Filtration Rate 57 (60-); Glucose, Blood 131 mg/dL (70-99); Magnesium, Blood 2.1 mg/dL (1.6-2.4); Phosphorus, Blood 2.8 mg/dL (2.5-4.9); Potassium, Blood 4.1 mmol/L (3.5-5.5); Sodium, Blood 142 mmol/L (136-145)
--- NOTE | 2023-09-08 07:00 | NUR ---
Received in room report from Yadira Camara. patient is awake in bed and is able to communicate his needs. His spouse is in a chair and helps with Hx. He is on 2L O2 via NC and sats 100%, turned off O2 to evaluate need. He is normally independent, but restricted to bed with assist up r/t syncopal episodes. He has urional at bedside and has small amount of yellow urine<100 ml's. He has 18ga IV to LW and is infusing heparin at 15 Units/kg/hr, 2nd nurse verification ( Micaela Ornelas). He also has 20ga IV in LAC that is infusing LR at 100 ml/hr. He has pain that is 6/10 and is very chronic that we are treating minamally and will communicate with doctor to place on home dose.. he is able to LEY in bed.
--- NOTE | 2023-09-08 12:39 | NUR ---
Patient has been up several times to use bedside cammode. He remains very weak and uses walker appropriately. He remains on RA and sats >90%. Lots of family has been by. remains at bedside. He tolerated am meds and breakfast and had no appetite for lunch. He has been resting lightly. Dr Cox was by and stated back on normal home dose of dilaudid. He states pain has been better since then. LR continues at 100 ML's/hr and no changes to heparin at 15 units/kg/hr.
--- NOTE | 2023-09-08 15:30 | NUR ---
Patient has had alot of family in room and now only remains. He has been up to cammode once and once standing at bedside to use urinal. He is steady and slow with SBA when up and is able to be assisted with ADL's. he was nauseated and painful and medicated per MAR. He has been self positioning and if needs assistance call appropriately or comes out and requests. he has had about 350 ml of concentrated yellow urine out so far. He has been very tired today and PT will work with him tomorrow. LR has been stopped and Heparing running at 15 units/kg/hr. He remains on RA and sats >90%.
--- NOTE | 2023-09-08 18:11 | NUR ---
Patient awake in bed with headache and nausea. Medicated per MAR. Assisted with reposition. He remains on RA and sats >90%. He continues on Heparin at 15 units/kg/hr. He is SBA up to bedside with assist and very slow but steady. family is all gone currently. He wants his Soma at bedtime with sleep.
[2023-09-09 01:43] VITALS: BP 108/77
--- NOTE | 2023-09-09 06:17 | NUR ---
TEE SAPP ASSUMED CARE OF PATIENT AT APPX 0200 FROM MELANIE TEMPLE. PT IS ALERT AND ORIENTED X4, VS WNL. HEPARIN DRIP INFUSING PER MD ORDERS. PT MEDICATED FOR CHRONIC PAIN-SEE EMAR. ASSISTED PT TO STAND AND USE URINAL. HE HAS BEEN AFEBRILE. THERE HAVE BEEN NO ACUTE CHANGES TO PT STATUS OVERNIGHT.
[2023-09-09 06:54] VITALS: BP 133/88
--- NOTE | 2023-09-09 07:04 | NUR ---
Received in room report from Noc RN. Patient is awake and sitting up in bed reading a book. he is alert and oriented and is able to communicate his needs. His pain is managable currently as he was medicated approx. 1 hour ago. I wrote pain med times on board as to help him know when to ask and educated him on that. He is on RA and sats >90%. He has urinal at bedside and calls appropriately when needing to get up. He is very weak and slow and is SBA when up with walker to use urinal or bedside cammode. He is able to MAEW and as stated very weak and will need ongoing PT/OT. He has 18ga IV to LW, flushed and SL'd and also has 20tga IV in LAC that is infusing Heaprin at 15 units/kg/hr until PO transition. He has no current needs.
--- NOTE | 2023-09-09 11:30 | NUR ---
Patient in and out of a-Fib and then converted comp[lete, EKG done. Notified Dr Ramirez. He has been medicated for pain and tolerated am meds as well. he has been up to bedside to urinate several time and tolerated well He has worked with PT as well and they did eval. HR has been in the 120. He remains on RA and sats >90%. He continues to be low and weak but is a steady SBA with standing. remains at bedside. Patient calls appropriately.
[2023-09-09 13:27] VITALS: BP 120/88
--- NOTE | 2023-09-09 15:06 | NUR ---
Patient is lying in bed and alert. 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 He tells me about the concerns of his current situation and the longing to be around for his grandchildren. I provide therapeutic listening, and prayer. Patient repsonded well and showed signs of an increase in peace. I will continue to remain available to patient and family.
--- NOTE | 2023-09-09 15:30 | NUR ---
Patient called for assistance to get up to use urinal and placed him in chair when he was done. He has changed to 2:1 flutter from a-fib. He has started his PO doses of amiodarone and will get three doses of 400mg before midnight and change to QID. He remains on the Heparin at 15 units/kg/hr. Continue to medicat for pain per MAR. No other significant changes. Dr Javire was consulted by Dr Ramirez.
[2023-09-09 17:40] VITALS: BP 138/92
--- NOTE | 2023-09-09 17:47 | NUR ---
Medicated for ongoing chronic pain per OCT and 2nd dose Amiodarone. Patient remqains up in chair and is eating dinner without difficulty and no nausea. He continues in A-Flutter 2:1 at rate 120-130's, Dr Javier aware. He remains on RA and sats >90% and denies and current SOB or chest pain.
[2023-09-09 19:58] VITALS: BP 132/81
[2023-09-10] VITALS (7 sets, daily range): BP systolic 92–139; BP diastolic 67–96
[2023-09-10 03:24] LABS: Hematocrit 31.7 % (37.0-53.0); Hemoglobin 10.4 g/dL (13.5-17.5); Mean Platelet Volume 10.1 fL (9.1-12.4); Platelet Count 211 K/mm3 (150-400)
--- NOTE | 2023-09-10 18:38 | NUR ---
SHIFT SUMMARY PATIENT SBA FOR STANDING TO USE URINAL. MEDICATED FOR PAIN PER EMAR. INTERMITTENT SHORTNESS OF BREATH AND CHEST PRESSURE REMAINS UNCHANGED SINCE ADMISSION. ORAL AMIODARONE GIVEN ORDERED. 2 PRESSURE ULCERS OBSERVED, 1 NONBLANCHING REDNESS ON LEFT HEEL AND 1 SMALL SCABBED OVER PRESSURE ULCER TO COCCYX, PATIENT STATES HE DID NOT KNOW HE HAD ONE ON COCCYX BUT HAS BEEN FEELING PAIN IN LEFT HEEL FOR 2 DAYS NOW. BED IN LOW POSITION, CALL LIGHT IN REACH. AT BEDSIDE. Q2H TURNS IMPLEMENTED. ESURE OFFERED WITH MEAL. PATIENT ABLE TO MAKE NEEDS KNOWN. WILL CONTINUE TO MONITOR.
[2023-09-11] VITALS (15 sets, daily range): BP systolic 80–210; BP diastolic 49–104
[2023-09-11 03:09] LABS: BASOPHILS ABSOLUTE AUTO 0.05 K/mm3 (0.00-0.23); BASOPHILS PERCENT AUTO 1 % (0-2); EOSINOPHILS ABSOLUTE AUTO 0.13 K/mm3 (0.00-0.68); EOSINOPHILS PERCENT AUTO 2 % (0-6); Hematocrit 29.6 % (37.0-53.0); Hemoglobin 9.7 g/dL (13.5-17.5); IMMATURE GRAN ABSOLUTE AUTO 0.01 K/mm3 (0.00-0.10); IMMATURE GRAN PERCENT AUTO 0 % (0-1); LYMPHOCYTES ABSOLUTE AUTO 1.49 K/mm3 (0.84-5.20); LYMPHOCYTES PERCENT AUTO 25 % (21-46); MONOCYTES ABSOLUTE AUTO 0.58 K/mm3 (0.16-1.47); MONOCYTES PERCENT AUTO 10 % (4-13); Mean Corpuscular HGB 28.6 pg (26.0-34.0); Mean Corpuscular HGB Conc 32.8 g/dL (31.5-36.5); Mean Corpuscular Volume 87 fL (80-100); Mean Platelet Volume 9.9 fL (9.1-12.4); NEUTROPHILS PERCENT AUTO 61 % (41-73); Platelet Count 196 K/mm3 (150-400); RDW Coefficient Variation 13.7 % (11.7-14.2); RDW Standard Deviation 43.5 fL (35.1-46.3); Red Blood Cell Count 3.39 M/mm3 (4.30-5.90); White Blood Cell Count 5.86 K/mm3 (4.00-11.30)
--- NOTE | 2023-09-11 06:52 | NUR ---
SHIFT SUMMARY PATIENT ALERT AND ORIENTED X4. 1 ASSIST TO STAND WHEN USING URINAL. MEDICATED PER EMAR FOR PAIN. PATIENT REPORTS OCCASIONAL MILD CHEST TIGHTNESS AND SHORTNESS OF BREATH. CONTINUES ON ROOM AIR WITH SPO2 IN THE HIGH 90'S. NO ACUTE ISSUES NOTED OVERNIGHT. WILL CONTINUE TO MONITOR. CALL LIGHT WITHIN REACH.
--- NOTE | 2023-09-11 07:58 | NUR ---
Pt is soundly sleeping. Doesn't awaken during vital signs, but does wake up to gentle conversation. Pt NPO. ATrial fibrillation, 75 bpm by awake overnight monitor. Vital signs stable.
--- NOTE | 2023-09-11 12:55 | NUR ---
per heart center staff, plan is to take pt for cardioversion after 2 pm today.
--- NOTE | 2023-09-11 13:51 | NUR ---
Pt is visibly shaking, with dry cough, tachypnea and fever 100.3. Blood pressure taken manually is 210/98 and spo2 92% on room air. Lung sounds coarse wheeze noted on the left side, auscultated on his back. Heart rate [address] Ramirez and stat chest xray ordered.
--- NOTE | 2023-09-11 14:05 | NUR ---
pt taken to heart center, just after chest xray was completed.
--- NOTE | 2023-09-11 15:12 | NUR ---
NORMAL sinus rhythm, 86 bpm.
--- NOTE | 2023-09-11 15:23 | NUR ---
pt returned to room; NSR 90 bpm per telemetry. pt is still sleepy.
--- NOTE | 2023-09-11 17:02 | NUR ---
Pt had successful cardioversion this afternoon. Normal sinus rhythm with stable blood pressure and no tachypnea following his return from the laboratory chief to PCU. He is still requiring 2 l/min of supplemental oxygen to keep his spo2 greater than 89%. Very weak, stiff extremities. Stood at side of the bed to use the urinal and needed two staff members, gait belt and walker to stand and void. He was also in pain and was given dilaudid and tylenol, as his fever was 100.3 and to help with the pain relief. No relief so flexeril was then given about an hour later. He is sitting up in bed, eating dinner. His daughter Rand and are at the bedside.
--- NOTE | 2023-09-11 17:50 | NUR ---
reports pt has had a poor appetite for the past few months, and has lost 20+ pounds. He has a poor appetite this afternoon. Ate only 10% of dinner, drank his ensure and some other beverages. He is sitting up in bed, watching TV. Blood pressure dropped to 90 systolic after receiving his pm Cozaar dose. From looking at the trend, he has had an occasional dip in his blood pressure while in atrial flutter, 80 mmHG systolic. Remains in sinus rhythm, rate 84 bpm.
[2023-09-12 04:16] VITALS: BP 129/78
--- NOTE | 2023-09-12 06:41 | NUR ---
SHIFT SUMMARY PATIENT ALERT AND ORIENTED X4. 1-2 ASSIST TO STAND AND USE URINAL AT BEDSIDE DEPENDING ON PATIENT'S STRENGTH. MEDICATED PER EMAR FOR PAIN. WAS ON ROOM AIR WITH SPO2 >90%, INTERMITTENT MILD SHORTNESS OF BREATH. PATIENT AFEBRILE, DENIES CHEST PAIN. BLOOD PRESSURE STABLE, SINUS RHYTHM ON TELE. NO ACUTE ISSUES NOTED OVERNIGHT. WILL CONTINUE TO MONITOR. CALL LIGHT WITHIN REACH.
--- NOTE | 2023-09-12 07:10 | NUR ---
Pt is awake, alert and oriented. He is asking about imaging on his lower back. He has chronic head pain, but since falling on Saturday his lower back has been hurting as well. His daughter was asking if some imaging could be done to verify no injury to the lower back. Encouraged the pt also to continue mobilizing, which he has been doing as possible, but yesterday could not work with PT since his heart rate was 120s and he was going for cardioversion. He says that his back pain is worse when he lays on his back or his left side. He was able yesterday to get up to the bedside commode and to stand to urinate, which he prefers to attempting to void while lying down. Lab here to draw blood.
[2023-09-12 07:14] VITALS: BP 114/71
[2023-09-12 07:22] LABS: Hematocrit 27.9 % (37.0-53.0); Hemoglobin 9.1 g/dL (13.5-17.5); Mean Platelet Volume 9.8 fL (9.1-12.4); Platelet Count 183 K/mm3 (150-400)
--- NOTE | 2023-09-12 09:10 | NUR ---
Dr. Ramirez rounding on the patient at this time.
[2023-09-12 11:10] VITALS: BP 121/74
--- NOTE | 2023-09-12 14:17 | NUR ---
Assisted from recliner chair back to bed, lying on his right side. Positioning managed to pt satisfaction. and granddaughter at the bedside.
[2023-09-12 16:01] VITALS: BP 116/62
--- NOTE | 2023-09-12 16:40 | NUR ---
Stood with minimal assistance to use the urinal at bedside.
[2023-09-12 19:34] VITALS: BP 149/72
[2023-09-12 23:57] VITALS: BP 98/54
[2023-09-13 04:00] VITALS: BP 116/71
--- NOTE | 2023-09-13 04:20 | NUR ---
SHIFT SUMMARY. SHIFT HAS BEEN MOSTLY UNREMARKABLE. PT AOX4, PLEASANT, COOPERATIVE WITH CARE. 1P TRANSFER, CALLS APPROPRIATELY FOR ASSISTANCE. PAIN HAS BEEN ADEQUATELY MANAGED VIA EMAR. PT HAS BEEN ABLE TO SLEEP THROUGH MOST OF SHIFT AFTER 2100 MED PASS AND SHIFT ASSESSMENT. TELE ON THROUGHOUT SHIFT WITH NO EVENTS THUS FAR. VITALS HAVE BEEN STABLE, HAS MAINTAINED SATURATIONS >92% ON ROOM AIR THROUGHOUT SHIFT. BED LOCKED IN LOWEST POSITION. CALL LIGHT LEFT WITHIN REACH. CONTINUING TO MONITOR.
[2023-09-13 07:16] VITALS: BP 126/75
[2023-09-13 12:22] VITALS: BP 115/63
[2023-09-13] MEDS ORDERED: Amiodarone HCl200 MG PO (13:57)
[2023-09-13] MEDS ORDERED: XARELTO15 M1 PO (13:57)
[2023-09-13] MEDS ORDERED: DOCUZEN 8.6-501 EACH PO (13:58)
[2023-09-13] MEDS ORDERED: MIRALAX17 GM PO (13:59)
--- NOTE | 2023-09-13 16:10 | NUR ---
DISCHARGE this rn provided discharge education on medication dose decreases, increases, new medications, and medications to stop. patient, patient and daughter educated and this rn answered their questions and questions this rn was not able to informed them to ask their primary care provider saturday at their appointment. [facility] daughter took patients belongings home. patient left when transport arrived at 1605 and left at 1606. patient left with all belongings that remained. patient left in no distress.
[2023-09-13 18:38] LABS: ANTITHROMBIN, ENZYMAT ACTIVITY 108 % (76-128); APC RESISTANCE 4.04 (>=2.00); B2GLYCOPROTEIN 1, IGG ANTIBODY <10 SGU (<=20); B2GLYCOPROTEIN 1, IGM ANTIBODY <10 SMU (<=20); CARDIOLIPIN ANTIBODY IGG <10 GPL (<=14); CARDIOLIPIN ANTIBODY IGM <10 MPL (<=12); FACTOR V LEIDEN BY PCR Not Done; FACV REF SPECIMEN Not Done; HOMOCYSTEINE, TOTAL 13 umol/L (0-15); PROTEIN C FUNCTIONAL 132 % (83-168); PROTEIN S AG FREE 145 % (74-147); PROTHROMBIN F2 G20210A VARIANT Negative; PROTHROMBIN TIME 15.2 sec (12.0-15.5); PT PCR SPECIMEN Whole Blood; PTT-D HEPARIN NEUTRALIZED 35 sec (32-48); PTT-LA SCREEN (PTT-D) 84 sec (32-48); THROMBIN TIME >150.0 sec (14.7-19.5)
== END 2023-09-13 16:43 | disposition home health service (06) | DRG 175 ==
LOC: ER 15:51 → PCU 15:52 → ER 09-08 00:02 → PCU 09-08 00:10
PROVIDERS: Emergency Medicine; Family Medicine; Internal Medicine; Student in an Organized Health Care Education/Training Program; ADMIT Internal Medicine
PROC: 5A2204Z Restoration of Cardiac Rhythm, Single (ICD-10-PCS; principal; 2023-09-11)
DX: I26.99 Other pulmonary embolism without acute cor pulmonale (principal); J96.01 Acute respiratory failure with hypoxia; I48.92 Unspecified atrial flutter; I48.0 Paroxysmal atrial fibrillation; R55 Syncope and collapse; G89.29 Other chronic pain; I12.9 Hypertensive chronic kidney disease with stage 1 through stage 4 chronic kidney disease, or unspecified chronic kidney disease; N18.30 Chronic kidney disease, stage 3 unspecified; R77.8 Other specified abnormalities of plasma proteins; D64.9 Anemia, unspecified; G43.909 Migraine, unspecified, not intractable, without status migrainosus; F43.10 Post-traumatic stress disorder, unspecified; G31.84 Mild cognitive impairment of uncertain or unknown etiology; Z85.46 Personal history of malignant neoplasm of prostate; Z11.52 Encounter for screening for COVID-19; Z86.718 Personal history of other venous thrombosis and embolism; Z86.14 Personal history of Methicillin resistant Staphylococcus aureus infection; Z28.21 Immunization not carried out because of patient refusal
CPT/HCPCS: 0241U; 36415; 70450; 71045; 71260; 73502; 80053; 80069; 81240; 83090; 83735; 84443; 84484; 85014; 85018; 85025; 85049; 85300; 85303; 85306; 85307; 85520; 85610; 85613; 85635; 85670; 85730; 86146; 86147; 93005; 93010; 93306; 93308; 93321; 94762; 96365-59; 96366; 96375; 96375-59; 96376; 96376-59; 97110; 97116; 97162; 97530; 99285-25; A9270; G0378; J1644; J2250; J2405; J2704; J3010; J7030; J7120; Q9967

== ENCOUNTER → 2023-09-16 | Outpatient (CLI) | payer MEDICARE ==
[~2023-09-16] MED LIST changes: +ALLEGRA ALLERG180 MG PO; +Amiodarone HCl200 MG PO; +DOCUZEN 8.6-501 EACH PO; +MIRALAX17 GM PO; +XARELTO15 M1 PO
[2023-09-16 14:57] LABS: Source, Urine Clean Catch
[2023-09-16 16:59] LABS: Appearance, Urine Hazy (Clear); Bilirubin, Urine Neg (Neg); Blood, Urine 4+ (Neg); Color, Urine Yellow (P-Yellow); Glucose Qualitative, Urine Neg (Neg); Ketones, Urine Neg (Neg); Leukocyte Esterase, Urine Neg (Neg); Nitrite, Urine Neg (Neg); Protein, Urine 1+ (Neg); Specific Gravity, Urine 1.015 (1.003-1.022); Urobilinogen, Urine NORM (Normal)
[2023-09-16 17:12] LABS: Bacteria Few /hpf; Red Blood Cells, Urine TNTC /hpf (0-2); Squamous Epithelial Cells Not Seen /hpf (Few); White Blood Cells, Urine 0-2 /hpf (0-5)
== END ==
LOC: LAB SHORT 14:56 → LAB 14:56
PROVIDERS: Internal Medicine
DX: R35.0 Frequency of micturition (principal)
CPT/HCPCS: 81001

== ENCOUNTER → 2023-09-20 | Outpatient (CLI) | payer MEDICARE ==
[2023-09-20 12:28] LABS: BASOPHILS ABSOLUTE AUTO 0.07 K/mm3 (0.00-0.23); BASOPHILS PERCENT AUTO 1 % (0-2); EOSINOPHILS PERCENT AUTO 1 % (0-6); Hematocrit 35.9 % (37.0-53.0); Hemoglobin 11.3 g/dL (13.5-17.5); IMMATURE GRAN ABSOLUTE AUTO 0.04 K/mm3 (0.00-0.10); IMMATURE GRAN PERCENT AUTO 1 % (0-1); LYMPHOCYTES ABSOLUTE AUTO 0.79 K/mm3 (0.84-5.20); LYMPHOCYTES PERCENT AUTO 10 % (21-46); MONOCYTES ABSOLUTE AUTO 0.44 K/mm3 (0.16-1.47); MONOCYTES PERCENT AUTO 6 % (4-13); Mean Corpuscular HGB Conc 31.5 g/dL (31.5-36.5); Mean Corpuscular Volume 89 fL (80-100); NEUTROPHILS ABSOLUTE AUTO 6.51 K/mm3 (1.96-9.15); NEUTROPHILS PERCENT AUTO 82 % (41-73); Platelet Count 482 K/mm3 (150-400); RDW Coefficient Variation 13.7 % (11.7-14.2); RDW Standard Deviation 44.5 fL (35.1-46.3); Red Blood Cell Count 4.03 M/mm3 (4.30-5.90); White Blood Cell Count 7.95 K/mm3 (4.00-11.30)
[2023-09-20 12:37] LABS: Albumin, Blood 3.2 g/dL (3.4-5.0); Albumin/Globulin Ratio 0.9 (0.8-1.8); Bilirubin, Total 0.3 mg/dL (0.1-1.0); Bun/Creatinine Ratio 17.6 (12.0-20.0); Calcium, Blood 9.4 mg/dL (8.5-10.1); Creatinine, Blood 1.59 mg/dL (0.60-1.20); Globulin, Blood 3.7 g/dL (2.2-4.0); Total Protein, Blood 6.9 g/dL (6.4-8.2)
== END | disposition home or self-care (01) ==
LOC: LAB SHORT 12:22 → LAB 12:22
PROVIDERS: Physician Assistant
DX: N18.30 Chronic kidney disease, stage 3 unspecified (principal)
CPT/HCPCS: 80053; 85025